=== PATIENT | male | born 1990 | race African-American/Black ===

== ENCOUNTER 2017-08-26 10:00 | Emergency (ER) | payer MEDICARE, OTHER ==
[~2017-08-26] VITALS: Ht 185.4 cm; Wt 95.5 kg
[~2017-08-26 10:00] MED LIST: NOCURR
[2017-08-26 13:05] LABS: INFLUENZA TYPE A NEGATIVE FOR TYPE A (NEGATIVE); INFLUENZA TYPE B NEGATIVE FOR TYPE B (NEGATIVE)
[2017-08-26 15:10] VITALS: BP 119/65
== END 2017-08-26 15:11 | disposition home or self-care (01) ==
LOC: EMS 10:06
DX: R05 Cough (principal); J02.9 Acute pharyngitis, unspecified; Z88.0 Allergy status to penicillin
CPT/HCPCS: 71046; 87430; 87804; 99285

== ENCOUNTER 2021-01-06 18:36 | Emergency (ER) | payer MEDICARE, MEDICAID ==
[~2021-01-06] VITALS: Ht 180.3 cm; Wt 127.3 kg
[2021-01-06] MEDS ORDERED: IBUPROFEN 800 MG TABLET PO ONE (22:30)
[2021-01-06 22:56] VITALS: BP 127/85
== END 2021-01-06 23:00 | disposition home or self-care (01) ==
LOC: EMS 18:36
DX: M76.812 Anterior tibial syndrome, left leg (principal); Z88.0 Allergy status to penicillin
CPT/HCPCS: 99282; 99283

== ENCOUNTER 2021-12-24 12:21 | Emergency (ER) | payer MEDICARE, MEDICAID ==
[~2021-12-24] VITALS: Ht 182.9 cm; Wt 127.3 kg
[2021-12-24 12:41] VITALS: BP 133/77
[2021-12-24] MEDS ORDERED: GuaiFENesin/D-METHORPHAN [SUGAR-FREE] 200-20MG/10 ML SYRUP UDCUP PO ONE (12:45)
[2021-12-24] MEDS ORDERED: ALBU8HFA IH (12:45)
[2021-12-24] MEDS ORDERED: ACETAMINOPHEN 500 MG TABLET PO ONE (12:45)
[2021-12-24 12:59] LABS: COVID AG,FIA SOURCE NASAL SWAB
[2021-12-24] MEDS ORDERED: IBUP-1554 PO (15:05)
[2021-12-24] MEDS ORDERED: GUAIFDM PO (15:05)
[2021-12-24] MEDS ORDERED: ACET-2080 PO (15:05)
== END 2021-12-24 15:23 | disposition home or self-care (01) ==
LOC: EMS 12:22
DX: U07.1 COVID-19 (principal); J06.9 Acute upper respiratory infection, unspecified; J40 Bronchitis, not specified as acute or chronic; Z88.0 Allergy status to penicillin
CPT/HCPCS: 99282; Z7502; Z7610

== ENCOUNTER 2023-10-08 17:56 | Emergency (ER) | payer MEDICARE, MEDICAID ==
[~2023-10-08] VITALS: Ht 180.3 cm; Wt 118.2 kg
[~2023-10-08 17:56] MED LIST changes: +ACET-2080 PO; +ALBU18HF12 IH; +GUAIFDM PO; +IBUP-1554 PO; -NOCURR
[2023-10-08 18:50] VITALS: TEMP 98.2
[2023-10-08] MEDS: ONDANSETRON HCL 4 MG/2 ML VIAL IVP ONE (20:20)
[2023-10-08] MEDS: SODIUM CHLORIDE 0.9% 1,000 ML IV ONE (20:21)
[2023-10-08] MEDS: PB/HYOSCY/ATR/SCOP/LIDO/MAALOX 55 ML BOTTLE PO ONE (20:21)
[2023-10-08] MEDS: KETOROLAC TROMETHAMINE 30 MG/ML VIAL IVP ONE (20:21)
[2023-10-08 20:22] LABS: BASOPHILS % (AUTO) 0.2 % (0.0-2.0); EOSINOPHILS % (AUTO) 0 % (1.0-6.0); HEMATOCRIT 45.9 % (41-53); HEMOGLOBIN 15.5 g/dL (13.5-17.5); LYMPHOCYTES # (AUTO) 0.1 K/uL (1.0-4.8); LYMPHOCYTES % (AUTO) 1.4 % (22.0-44.0); MEAN CORPUSCULAR HEMOGLOBIN 31.6 pg (26.0-34.0); MEAN CORPUSCULAR HGB CONC 33.7 G/dL (31.0-37.0); MEAN CORPUSCULAR VOLUME 94 fL (80-100); MONOCYTES # (AUTO) 0.6 K/uL (0.1-1.0); MONOCYTES % (AUTO) 6.4 % (2.0-9.0); NEUTROPHILS # (AUTO) 7.9 K/uL (1.8-7.7); PLATELET COUNT (AUTO) 359 K/uL (150-450); WHITE BLOOD COUNT (AUTO) 8.6 K/uL (4.5-11.0)
[2023-10-08 20:41] LABS: ANION GAP 12 mmol/L (8-16); CALCIUM, TOTAL 8.6 mg/dL (8.8-10.5); CARBON DIOXIDE 25 mmol/L (22-29); CHLORIDE 102 mmol/L (98-107); GLOMERULAR FILTR. RATE CALC > 60 mL/min (>60); GLUCOSE,RANDOM 109 mg/dL (70-110); POTASSIUM 3.8 mmol/L (3.5-5.1); SODIUM SERUM 139 mmol/L (136-145); UREA NITROGEN, BLOOD 18 mg/dL (7-18)
[2023-10-08 20:47] LABS: ALCOHOL, BLOOD (SERUM) < 3 mg/dL (0-10)
[2023-10-08 20:48] LABS: RBC MORPHOLOGY COMMENT NORMAL RBC MORPH
[2023-10-08 20:54] LABS: ALANINE AMINOTRANSFERASE 42 U/L (12-78); ALBUMIN 4.1 g/dL (3.4-5.0); ALKALINE PHOSPHATASE 126 U/L (46-116); ASPARTATE AMINOTRANSFERASE 25 U/L (15-37); BILIRUBIN,TOTAL 0.6 mg/dL (0.1-1.0); LIPASE 10 U/L (16-77); TOTAL PROTEIN, SERUM 8.4 g/dL (6.4-8.2)
[2023-10-08 21:40] LABS: APPEARANCE,URINE CLEAR (CLEAR); BILIRUBIN,URINE NEGATIVE (NEGATIVE); COLOR,URINE YELLOW (YELLOW); GLUCOSE, URINE (UA) NEGATIVE (NEGATIVE); KETONES,URINE 40-60 mg/dL (NEGATIVE); LEUKOCYTE ESTERASE ,URINE NEGATIVE (NEGATIVE); NITRATE,URINE NEGATIVE (NEGATIVE); OCCULT BLOOD,URINE SMALL (NEGATIVE); PH,URINE 5.5 (5.0-8.0); PH,URINE DRUG SCREEN 5.5 (5.0-8.0); PROTEIN,URINE 30-70 mg/dL (NEGATIVE); SPECIFIC GRAVITIY, URINE 1.034 (1.003-1.030); UROBILINOGEN,URINE <=1.0 mg/dL (<=1.0)
[2023-10-08 21:46] LABS: ALCOHOL, URINE DRUG SCREEN NEGATIVE (NEGATIVE); AMPHET/METH SCREEN,URINE NEGATIVE (NEGATIVE); BARBITURATE SCREEN, URINE NEGATIVE (NEGATIVE); BENZODIAZEPINES SCREEN,URINE NEGATIVE (NEGATIVE); CANNABINOID SCREEN,URINE NEGATIVE (NEGATIVE); COCAINE SCREEN,URINE NEGATIVE (NEGATIVE); METHADONE SCREEN, URINE NEGATIVE (NEGATIVE); OPIATE SCREEN,URINE NEGATIVE (NEGATIVE); PHENCYCLIDINE SCREEN,URINE NEGATIVE (NEGATIVE)
[2023-10-08 22:08] LABS: BACTERIA,URINE None Seen /HPF (None Seen); MUCUS,URINE Moderate LPF (None Seen); SQUAMOUS EPITHELIAL CELL,UR None Seen /LPF (None Seen); WBC,URINE None Seen /HPF (0-5)
[2023-10-08] MEDS ORDERED: MAG30ORA11 PO (22:09)
[2023-10-08] MEDS ORDERED: OMEP20 PO (22:09)
[2023-10-08] MEDS ORDERED: ACET-66 PO (22:09)
[2023-10-08] MEDS ORDERED: ONDA-104 PO (22:09)
[2023-10-08 22:32] VITALS: BP 120/72; PULSE 80; RESP 16
== END 2023-10-08 23:15 | disposition home or self-care (01) ==
LOC: EMS 17:58
DX: K52.9 Noninfective gastroenteritis and colitis, unspecified (principal); R56.9 Unspecified convulsions; Z88.0 Allergy status to penicillin
CPT/HCPCS: 99284; 74176; 96374; 96361; 96375; 80053; 83690; 85025; 36415; 80307; 81001; J1885; J2405; J7030; G0480; 99285

== ENCOUNTER 2024-07-23 13:30 | Emergency (ER) | payer MEDICARE, MEDICAID ==
[~2024-07-23] VITALS: Ht 182.9 cm; Wt 106.8 kg
[~2024-07-23 13:30] MED LIST changes: +ACET-66 PO; +MAG30ORA11 PO; +OMEP20 PO; +ONDA-104 PO
[2024-07-23 13:36] VITALS: TEMP 99.5
[2024-07-23 13:39] LABS: COVID AG,FIA SOURCE NASAL SWAB
[2024-07-23 14:01] LABS: INFLUENZA TYPE A NEGATIVE FOR TYPE A (NEGATIVE); INFLUENZA TYPE B NEGATIVE FOR TYPE B (NEGATIVE); SARS-COV2 (COVID) ANTIGEN,FIA Negative (Negative)
[2024-07-23] MEDS: IBUPROFEN 600 MG TABLET PO ONE (15:24)
[2024-07-23] MEDS: ACETAMINOPHEN 500 MG TABLET PO ONE (15:24)
[2024-07-23 15:30] VITALS: BP 120/69
[2024-07-23] MEDS ORDERED: PRED-554 PO (16:41)
[2024-07-23] MEDS ORDERED: ACET-3385 PO (16:41)
[2024-07-23] MEDS ORDERED: IBUP-1492 PO (16:41)
[2024-07-23 16:52] VITALS: PULSE 95; RESP 18; O2SAT 97
[2024-07-23] MEDS: ALBUTEROL SULFATE HFA 90 MCG/PUFF 8 GM INHALER IH ONE (16:52)
[2024-07-23] MEDS: PredniSONE 20 MG TABLET PO ONE (17:07)
== END 2024-07-23 17:09 | disposition home or self-care (01) ==
LOC: EMS 13:30
DX: B34.9 Viral infection, unspecified (principal); J45.909 Unspecified asthma, uncomplicated; Z88.0 Allergy status to penicillin; Z79.899 Other long term (current) drug therapy; Z20.822 Contact with and (suspected) exposure to COVID-19
CPT/HCPCS: 99283; 87426; 87804; 94640; J7512; J3535